=== PATIENT | male | born 1930 | race Caucasian/White ===

== ENCOUNTER 2018-02-14 06:24 | Day surgery (SDC) | payer OTHER ==
[~2018-02-14] VITALS: Ht 167.6 cm; Wt 72.7 kg
[~2018-02-14 06:24] MED LIST: SODIUM CHLORIDE 0.9% 1,000 ML IV ONE
[2018-02-14] MEDS ORDERED: ALBUTEROL SULFATE 2.5 MG/0.5 ML NEB SOLUTION NEB ONE (06:25)
[2018-02-14] MEDS ORDERED: LIDOCAINE HCL 2% 30 ML JELLY TP ONE (06:25)
[2018-02-14] MEDS ORDERED: BENZOCAINE 20% 50 MCG/SPRAY 57 GM TP ONE (06:25)
[2018-02-14] MEDS ORDERED: LIDOCAINE HCL 4% 50 ML SOLUTION TP ONE (06:25)
[2018-02-14] MEDS ORDERED: SODIUM CHLORIDE 0.9% 1,000 ML IV ONE (07:30)
[2018-02-14] MEDS ORDERED: SUCR1TAB PO (07:42)
[2018-02-14] MEDS ORDERED: GABA-529 PO (07:42)
[2018-02-14] MEDS ORDERED: PRED10 PO (07:42)
[2018-02-14] MEDS ORDERED: ALBU8HFA IH (07:42)
[2018-02-14] MEDS ORDERED: LANS30 PO (07:42)
[2018-02-14] MEDS ORDERED: FLUT16H NASAL (07:42)
[2018-02-14] MEDS ORDERED: MONT10TA21 PO (07:42)
[2018-02-14] MEDS ORDERED: MIDAZOLAM HCL 2 MG/2 ML VIAL ONE (07:55)
[2018-02-14] MEDS ORDERED: FentaNYL CITRATE-PF 100 MCG/2 ML VIAL ONE (07:56)
[2018-02-14] MEDS ORDERED: MethylPREDNISolone SOD SUCC 125 MG/2 ML VIAL IVP ONE (09:15)
[2018-02-14] MEDS ORDERED: MethylPREDNISolone SOD SUCC 125 MG/2 ML VIAL ONE (09:20)
[2018-02-14] MEDS ORDERED: OXYGEN THERAPY IH SCH (20:00)
== END 2018-02-14 10:30 | disposition home or self-care (01) ==
LOC: SURGERY 06:24
PROVIDERS: ATTEND Internal Medicine Critical Care Medicine
DX: J38.4 Edema of larynx (principal); B37.0 Candidal stomatitis; J39.8 Other specified diseases of upper respiratory tract; J47.9 Bronchiectasis, uncomplicated; I10 Essential (primary) hypertension; J98.4 Other disorders of lung; M19.90 Unspecified osteoarthritis, unspecified site; Z79.52 Long term (current) use of systemic steroids; Z93.1 Gastrostomy status; Z79.891 Long term (current) use of opiate analgesic; Z98.890 Other specified postprocedural states; Z79.899 Other long term (current) drug therapy
CPT/HCPCS: 31623; 31624; 71045; 87015; 87070; 87077; 87186; 87205; 87206; 87220; 88108; 88312; J2250; J2930; J3010; J7030

== ENCOUNTER 2018-11-07 06:40 | Day surgery (SDC) | payer OTHER ==
[~2018-11-07] VITALS: Ht 157.5 cm; Wt 61.0 kg
[~2018-11-07 06:40] MED LIST changes: +ALBU8HFA IH; +FLUT16H NASAL; +GABA-529 PO; +LANS30 PO; +MONT10TA21 PO; +PRED10 PO; +SUCR1TAB PO
[2018-11-07] MEDS ORDERED: LIDOCAINE 4% 50 ML SOLUTION TP ONE (06:41)
[2018-11-07] MEDS ORDERED: ALBUTEROL SULFATE 2.5 MG/0.5 ML NEB SOLUTION NEB ONE (06:41)
[2018-11-07] MEDS ORDERED: GLYCOPYRROLATE 0.2 MG/ML VIAL IM ONE (06:41)
[2018-11-07] MEDS ORDERED: BENZOCAINE 20% 50 MCG/SPRAY 57 GM TP ONE (06:41)
[2018-11-07] MEDS ORDERED: SODIUM CHLORIDE 0.9% 1,000 ML IV ONE (06:46)
[2018-11-07] MEDS ORDERED: FentaNYL CITRATE-PF 100 MCG/2 ML VIAL ONE (07:58)
[2018-11-07] MEDS ORDERED: MIDAZOLAM HCL 2 MG/2 ML VIAL ONE (07:58)
[2018-11-07] MEDS ORDERED: MethylPREDNISolone SOD SUCC 125 MG/2 ML VIAL IVP ONE (08:45)
[2018-11-07] MEDS ORDERED: MethylPREDNISolone SOD SUCC 125 MG/2 ML VIAL ONE (09:10)
[2018-11-07] MEDS ORDERED: OXYGEN THERAPY IH SCH (20:00)
== END 2018-11-07 10:55 | disposition home or self-care (01) ==
LOC: SURGERY 06:40
PROVIDERS: ATTEND Internal Medicine Critical Care Medicine
DX: J39.8 Other specified diseases of upper respiratory tract (principal); J38.4 Edema of larynx; B37.0 Candidal stomatitis; J44.9 Chronic obstructive pulmonary disease, unspecified; E78.00 Pure hypercholesterolemia, unspecified; Z79.899 Other long term (current) drug therapy
CPT/HCPCS: 31623; 31624; 71045; 87015; 87070; 87077; 87101; 87205; 87206; 87220; 88108; 88312; 93005; J2250; J2930; J3010; J3490; J7030